=== PATIENT | female | born 1970 ===

== ENCOUNTER 2017-12-31 15:57 | Emergency (ER) | payer MEDICAID ==
[2017-12-31 16:35] VITALS: BP 125/74; PULSE 86; RESP 22; TEMP 97.8; O2SAT 95
== END 2017-12-31 18:13 | disposition home or self-care (01) | DRG 562 ==
LOC: ED 15:57
DX: S92.521A Displaced fracture of middle phalanx of right lesser toe(s), initial encounter for closed fracture (principal); J18.9 Pneumonia, unspecified organism
CPT/HCPCS: 71046; 73660; 99282; 99283